=== PATIENT | male | born 1955 | race Caucasian/White ===

== ENCOUNTER 2018-07-28 11:55 | Emergency (ER) | payer MEDICAID ==
[~2018-07-28] VITALS: Ht 185.4 cm; Wt 153.8 kg
--- NOTE | 2018-07-28 12:15 | NUR ---
patient came to the ER c/o hematuria since this morning. On room air, ambulatory with steady gait. Connected to the monitor and pulse ox. Kept comfortable, will continue to monitor accordingly.
[2018-07-28 12:44] LABS: BASOPHILS # (AUTO) 0.1 /CMM (0.0-0.2); HEMATOCRIT 45 % (39-51); HEMOGLOBIN 15.7 g/dL (13.5-17.5); LYMPHOCYTES # (AUTO) 2.8 /CMM (0.8-4.8); LYMPHOCYTES % (AUTO) 30.6 % (20.0-44.0); MEAN CORPUSCULAR HGB CONC 35 g/dl (31.0-36.0); MEAN CORPUSCULAR VOLUME 89 fL (80-96); MONOCYTES # (AUTO) 0.9 /CMM (0.1-1.30); MONOCYTES % (AUTO) 9.9 % (2.0-12.0); NEUTROPHILS % (AUTO) 55.5 % (43.0-81.0); PLATELET COUNT (AUTO) 213 /CMM (150-450); RED BLOOD CELL COUNT(AUTO) 5.03 MIL/uL (4.5-6.0)
[2018-07-28 12:52] LABS: CALCIUM, SERUM 8.8 mg/dL (8.5-10.1); CREATININE 1.2 mg/dL (0.6-1.3)
[2018-07-28 12:57] LABS: ALBUMIN 3.4 g/dL (3.4-5.0); BILIRUBIN,TOTAL 0.5 mg/dL (0.2-1.0); TOTAL PROTEIN, SERUM 6.9 g/dL (6.4-8.2)
--- NOTE | 2018-07-28 13:53 | NUR ---
urined collected and sent to lab.
[2018-07-28 13:56] LABS: APPEARANCE,URINE Cloudy (CLEAR); BILIRUBIN,URINE SMALL (NEGATIVE); BLOOD, URINE Moderate Ery/uL (NEGATIVE); KETONES,URINE Trace (NEGATIVE); LEUKOCYTE ESTERASE ,URINE Trace (NEGATIVE); NITRITE, URINE Negative (NEGATIVE); PROTEIN,URINE Trace mg/dl (NEGATIVE); UGLUCOSE Negative (NEGATIVE)
[2018-07-28 13:58] LABS: COLOR,URINE Dark Yellow (YELLOW)
--- NOTE | 2018-07-28 14:05 | NUR ---
ACCOMPANIED MAIN PA FOR PE OF PENIS.
[2018-07-28 14:07] LABS: RBC,URINE TOO NUMEROUS TO COUN /HPF (0-2); SQUAMOUS EPITHELIAL CELL,UR Rare /HPF (None Seen)
[2018-07-28 14:09] LABS: BACTERIA,URINE Rare /HPF (None Seen)
[2018-07-28 15:18] VITALS: BP 125/81
--- NOTE | 2018-07-28 15:20 | NUR ---
Patient discharged to home in stable condition. Written and verbal after care instructions given. Patient verbalizes understanding of instruction.
== END 2018-07-28 15:19 | disposition home or self-care (01) ==
LOC: ER 11:55
DX: N39.0 Urinary tract infection, site not specified (principal); F17.200 Nicotine dependence, unspecified, uncomplicated
CPT/HCPCS: 36415; 80053-TC; 81000-TC; 83690-TC; 85025-TC; 87086-TC

== ENCOUNTER → 2021-05-31 | Emergency (ER) | payer MEDICAID ==
[~2021-05-31] VITALS: Ht 185.4 cm; Wt 142.9 kg
[~2021-05-31] MED LIST: HYDR-3972 PO; HYDROCODONE/APAP 5/325MG TABLET ONE; HYDROCODONE/APAP 5/325MG TABLET PO ONE
--- NOTE | 2021-05-31 04:45 | NUR ---
TO ER BED 12. BIBSELF C/O NON RADIATING L SHOULDER PAIN S/P FELL OF BED X 1 DAY AGO, DEFORMITY NOTED. P/S 10/23. WORSE WITH MOVEMENT. PT DID NOT TAKE ANYTHING FOR PAIN. AWAITING MD EASON
--- NOTE | 2021-05-31 05:15 | NUR ---
ELECTRICAL EQUIPMENT TESTER AT PT'S BEDSIDE
--- NOTE | 2021-05-31 05:27 | NUR ---
Patient discharged to home in stable condition. Written and verbal after care instructions given. Patient verbalizes understanding of instruction. sling provided. rx given
[2021-05-31 05:36] VITALS: BP 140/85
== END | disposition home or self-care (01) ==
LOC: ER 04:36
DX: S42.002A Fracture of unspecified part of left clavicle, initial encounter for closed fracture (principal); F17.200 Nicotine dependence, unspecified, uncomplicated; Z60.2 Problems related to living alone; W06.XXXA Fall from bed, initial encounter; Y93.89 Activity, other specified; Y92.89 Other specified places as the place of occurrence of the external cause; Y99.8 Other external cause status
CPT/HCPCS: 73030-TC